=== PATIENT | male | born 1990 | race Caucasian/White ===

== ENCOUNTER 2018-05-05 08:16 | Inpatient (IN) | payer OTHER ==
[~2018-05-05] VITALS: Ht 185.4 cm; Wt 44.9 kg
[2018-05-05] VITALS (36 sets, daily range): BP systolic 86–123; BP diastolic 47–86
[2018-05-05 08:45] LABS: HEMATOCRIT 57.3 % (42.0-52.0); MCH 31.5 pg (26.0-34.0); MCHC 33.2 g/dL (28.0-37.0); RBC 6.03 mil/uL (4.50-6.00); RDW 12.5 % (10.5-14.5); WBC 23.7 thou/uL (4.0-11.0)
--- NOTE | 2018-05-05 09:00 | NUR ---
PROVIDER AWARE OF INABILITY TO GET TEMP; 3 WARM BLANKETS PLACED AND PROVIDER STATES DO NOT PERFORM RECTAL TEMP AT THIS TIME; CONTINUE TO TRY ORAL OR AXILLARY TEMP FOR NOW
[2018-05-05 09:06] LABS: CALCIUM 10.8 mg/dL (8.5-10.1); CREATININE 2.4 mg/dL (0.7-1.3); POTASSIUM 5.1 mmol/L (3.5-5.1)
[2018-05-05 09:08] LABS: TOTAL BILIRUBIN 0.7 mg/dL (<0.1-1.0); TOTAL PROTEIN 8.2 g/dL (6.4-8.2)
[2018-05-05 09:32] LABS: ABSOLUTE NEUTROPHILS 21.3 thou/uL (1.4-8.2)
[2018-05-05 09:33] LABS: ANISOCYTOSIS SLIGHT; MAGNESIUM 2.8 mg/dL (1.8-2.4); PLATELET COUNT 296 thou/uL (150-400); POIKILOCYTOSIS SLIGHT
[2018-05-05 09:34] LABS: PHOSPHORUS 11.9 mg/dL (2.5-4.9)
[2018-05-05 09:58] LABS: URINE BILIRUBIN NEGATIVE (Negative); URINE BLOOD 2+ (Negative); URINE CLARITY CLEAR; URINE COLOR YELLOW; URINE GLUCOSE-RANDOM* 3+ (Negative); URINE KETONES 3+ (Negative); URINE LEUKOCYTES-REFLEX NEGATIVE (Negative); URINE NITRITE-REFLEX NEGATIVE (Negative); URINE PROTEIN (DIPSTICK) 1+ (Negative); URINE SPECIFIC GRAVITY 1.025 (1.005-1.035); URINE UROBILINOGEN 0.2 E.U./dl (0.2-1.0)
[2018-05-05 10:22] LABS: HYALINE CASTS 0-3 Few /LPF (None Seen); MUCUS 4-6 Moderate strn/LPF (None Seen); SQUAMOUS 0-3 Few /LPF (0-3)
[2018-05-05 10:23] LABS: BACTERIA-REFLEX 1-9 Few /HPF (None Seen); CRYSTALS None Seen /LPF (None Seen); URINE RBC 0-2 Rare /HPF (0-2); URINE WBC-REFLEX 0-5 Rare /HPF (0-5)
[2018-05-05 10:53] LABS: ALBUMIN 5.3 g/dL (3.4-5.0); BUN 31 mg/dL (7-18); CALCIUM 10.9 mg/dL (8.5-10.1); CHLORIDE 95 mmol/L (98-107); CREATININE 2.3 mg/dL (0.7-1.3); PHOSPHORUS 11.9 mg/dL (2.5-4.9); SODIUM 140 mmol/L (136-145)
[2018-05-05 11:15] LABS: ANION GAP 40 mmol/L (7-16)
[2018-05-05 11:18] LABS: POTASSIUM 5.4 mmol/L (3.5-5.1)
[2018-05-05 11:19] LABS: CO2 < 5 mmol/L (21-32); GLUCOSE 963 mg/dL (74-106)
[2018-05-05 11:29] LABS: ALBUMIN 4.1 g/dL (3.4-5.0); BUN 31 mg/dL (7-18); CALCIUM 9.1 mg/dL (8.5-10.1); CHLORIDE 106 mmol/L (98-107); CREATININE 1.7 mg/dL (0.7-1.3); MAGNESIUM 2.5 mg/dL (1.8-2.4); PHOSPHORUS 6.4 mg/dL (2.5-4.9); POTASSIUM 5.6 mmol/L (3.5-5.1); SODIUM 145 mmol/L (136-145); TROPONIN-I <0.06 ng/mL (<0.06)
--- NOTE | 2018-05-05 11:29 | EKG ---
[address] [address] ELECTROCARDIOGRAM REPORT Name: ALFREDO CABAN Room #: 242-P ADM IN M.R.#: [id number] ������������������ Admission: 05/05/18 ������������������ Attend Phys: Christopher Atkinson MD Discharge: ������������������ Date of : 86 Report #: [id number] ����������������������������������������������������������������� [id number] THIS REPORT FOR: //name// [facility] ED Test Date: 2018-05-05 Test Time: 08:32:55 Pat Name: ALFREDO CABAN Department: Room: 242 Gender: M Linux Server Engineer: SURINDER : 1990 Requested By: Ned Mcgee Order Number: [id number] MD: Lars Bear Measurements Intervals [place] Rate: 150 P: 89 OK: 108 QRS: 92 QRSD: 84 T: 76 QT: 285 QTc: 451 Interpretive Statements Sinus tachycardia Left atrial enlargement Borderline right axis deviation Nonspecific ST/T wave changes Baseline wander in lead(s) II No previous ECG available for comparison Electronically Signed On 05-05-2018 11:28:55 ALLERGY NURSE by Lars Bear [email or web address] ��������������������������������������������� <ELECTRONICALLY SIGNED> ���������������������������������������� By: Lars Bear MD ��������������������������������������������� 05/05/18 1128 1 1 Lars Bear MD /EPI
[2018-05-05 11:44] LABS: ANION GAP 31 mmol/L (7-16)
[2018-05-05 11:46] LABS: CO2 8 mmol/L (21-32); GLUCOSE 589 mg/dL (74-106)
--- NOTE | 2018-05-05 13:50 | NUR ---
ORDERS RECEIVED FOR COGNITIVE/COMMUNICATION EVALUATION. BLOOD SUGARS HAVE CONTINUED TO DROP INTO SAFER RANGE, COGNITION HAS RETURNED TO BASELINE. NO FORMAL EVALUATION WARRANTED. AIR PRESS OPERATOR TO SIGN OFF AT THIS TIME; PLEASE RECONSULT NEEDED.
[2018-05-05 15:31] LABS: ALBUMIN 3.7 g/dL (3.4-5.0); CALCIUM 8.8 mg/dL (8.5-10.1); CREATININE 1.4 mg/dL (0.7-1.3); MAGNESIUM 2.4 mg/dL (1.8-2.4); PHOSPHORUS 1.6 mg/dL (2.5-4.9)
[2018-05-05 15:33] LABS: POTASSIUM 4.5 mmol/L (3.5-5.1)
--- NOTE | 2018-05-05 16:57 | NUR ---
CM ASSESSMENT: CASE OPENED FOR DC PLANNING. CLINICAL INFO REVIEWED. PT SLEEPING AT TIME OF ASSESSMENT, INFO OBTAINED FROM PT'S MOTHER KENIA. PT ADMITS WITH VERAL WEEK HX WEIGHT LOSS AND NOT FEELING WELL. DX WITH TYPE 1 DM. PT L[place], WORKS FT, HAS VEHICLE. NO PCP. MOM STATES PT HAS [employer] INSURANCE BUT DOES NOT HAVE CARD NOW. HAD EMAIL FROM [employer] WITH PT'S MEMBER ID AND THIS INFO FORWARDED TO PRE CERT FOR VERIFICATION. ENCOURAGED PT'S MOM TO BRING CARD IF ABLE. PT LATE AWAKE AND DISCUSSED IMPORTANCE OF PRIMARY CARE FOLLOW UP POST DISCHARGE. PROVIDED PT AND HIS MOTHER VERIFICATION OF PT'S HOSPITALIZATION FOR THEIR EMPLOYERS AT MOM'S REQUEST. THE LEVEL OF ASSISTANCE AT DC WILL DEPEND ON WHETHER PT HAS COMMERCIAL MDEICAL INSURANCE AND WILL FOLLOW TO VERIFY THIS AND ASSIST WITH COORDINATION OF DC NEEDS. PT WILL NEED PCP RESOURCES AND MEDS AND DIABETIC SUPPLIES FOR MONITORING BLOOD GLUCOSE.
[2018-05-05 19:40] LABS: ALBUMIN 3.4 g/dL (3.4-5.0); CALCIUM 8.3 mg/dL (8.5-10.1); CREATININE 1.2 mg/dL (0.7-1.3); MAGNESIUM 2.1 mg/dL (1.8-2.4); PHOSPHORUS 1.3 mg/dL (2.5-4.9); POTASSIUM 3.9 mmol/L (3.5-5.1)
[2018-05-05 23:35] LABS: CALCIUM 8.1 mg/dL (8.5-10.1); CREATININE 0.9 mg/dL (0.7-1.3); MAGNESIUM 1.8 mg/dL (1.8-2.4); PHOSPHORUS 1.5 mg/dL (2.5-4.9); POTASSIUM 3.5 mmol/L (3.5-5.1)
[2018-05-06] VITALS (33 sets, daily range): BP systolic 74–112; BP diastolic 41–86
[2018-05-06 04:57] LABS: ALBUMIN 2.9 g/dL (3.4-5.0); CALCIUM 8.1 mg/dL (8.5-10.1); CREATININE 0.9 mg/dL (0.7-1.3); PHOSPHORUS 1.7 mg/dL (2.5-4.9); POTASSIUM 3.2 mmol/L (3.5-5.1)
--- NOTE | 2018-05-06 06:36 | NUR ---
FOLLOWING POC WITH DKA PROTOCOL. BP HAVE BEEN SOFT ALL EVENING. 0400 LABS SHOW K+ LOWER. CHANGED FLUIDS TO 40 MEQ OF K+ WITH D5 1/2NS. HUNG IVPB K+ 20 MEQ. PT STILL DROWSY. PT BIGGEST CONCERN IS WANTING TO EAT. HOURLY ROUNDING. MOTHER OF PT ROOMING IN.
[2018-05-06 09:29] LABS: CALCIUM 8.2 mg/dL (8.5-10.1); CREATININE 0.9 mg/dL (0.7-1.3); POTASSIUM 3.4 mmol/L (3.5-5.1)
[2018-05-06 09:33] LABS: MAGNESIUM 1.8 mg/dL (1.8-2.4); PHOSPHORUS 1.1 mg/dL (2.5-4.9)
[2018-05-06 13:56] LABS: ALBUMIN 3.1 g/dL (3.4-5.0); CALCIUM 7.8 mg/dL (8.5-10.1); CREATININE 0.8 mg/dL (0.7-1.3); MAGNESIUM 1.7 mg/dL (1.8-2.4); PHOSPHORUS 0.8 mg/dL (2.5-4.9); POTASSIUM 3.6 mmol/L (3.5-5.1)
--- NOTE | 2018-05-06 18:49 | NUR ---
Received pt from the ICU, alert and oriented x 4, both IV lines patent. FAmily of the pt at bedside. Pt is able to tolerate diet, no complaints of nausea, vomiting or diarrhea.
[2018-05-07 04:59] LABS: ABSOLUTE NEUTROPHILS 2.5 thou/uL (1.4-8.2); BASOPHILS 0.3 % (0.0-2.0); EOSINOPHILS 2.3 % (0.0-3.0); LYMPHOCYTES 29.2 % (24.0-44.0); MCH 31.8 pg (26.0-34.0); MCHC 35.6 g/dL (28.0-37.0); MONOCYTES 8.4 % (1.0-8.0); POLYS 59.8 % (36.0-66.0); RBC 4.37 mil/uL (4.50-6.00); RDW 12.5 % (10.5-14.5)
[2018-05-07 05:08] LABS: HEMOGLOBIN 13.9 gm/dL (14.0-18.0); WBC 4.1 thou/uL (4.0-11.0)
[2018-05-07 05:09] LABS: MCV 89.2 fL (80.0-100.0); PLATELET COUNT 132 thou/uL (150-400)
[2018-05-07 05:25] LABS: ALBUMIN 2.9 g/dL (3.4-5.0); CALCIUM 7.8 mg/dL (8.5-10.1); CREATININE 0.5 mg/dL (0.7-1.3); PHOSPHORUS 1.4 mg/dL (2.5-4.9); TOTAL BILIRUBIN 0.6 mg/dL (<0.1-1.0); TOTAL PROTEIN 4.7 g/dL (6.4-8.2)
[2018-05-07 05:29] LABS: POTASSIUM 2.9 mmol/L (3.5-5.1)
[2018-05-07 06:50] VITALS: BP 109/70
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
[2018-05-07 08:03] VITALS: BP 95/62
[2018-05-07 08:30] VITALS: BP 106/93
--- NOTE | 2018-05-07 12:01 | NUR ---
FOLLOWING FOR DC PLANNING. CLINICAL INFO REVIEWED. WORKING WITH PT/MOM TO VERIFY ANY ACTIVE MEDICAL INSURANCE. YESTERADY, PT'S MOM KENIA INFORMED MEMBER ID SHE PROVIDED PREVIOUSLY SHOWED ONLY DENTAL COVERAGE. UR TECH DOING MORE DETAILED CHECK FOR [employer] ACTIVE MEDICAL COVERAGE. DR. THOMPSON INDICATES PT IS READY FOR DC TODAY. 4W CM AND DUMPING MACHINE OPERATOR UPDATED AND WILL NOTIFY DR. THOMPSON WHEN DETERMINED WHETHER PT HAS ACTIVE MEDICAL COVERAGE.
--- NOTE | 2018-05-07 14:27 | NUR ---
Pt stable during the shift, diet is well tolerated. No complaints of pain or discomfort verbalized. Oral potassium given, labs drawn at noon now within normal limits. Pt is able to ambulate on his own with no issues.
[2018-05-07 14:36] VITALS: BP 106/93
--- NOTE | 2018-05-07 14:44 | NUR ---
CARE TEAM INDICATED THAT PT IS MEDICALLY STABLE TO DISHCARGE HOME THIS DAY. PHYSICIAN WROTE SCRIPTS FOR ALL OF PT'S MEDS AND SUPPLIES. UR DC LEAD MASSAGE THERAPIST MET WITH PT AND DETERMINED THAT PT HAD A [employer] INSURANCE THROUGH THE [employer] BUT THAT THEY WOULDN'T COVER SOME OF HIS MEDS. SCRIPT WAS TAKEN TO THE PHARMACY TO BE FILLED AND VOUCHERED BY SS. CM AWAITING COST OF MEDS AND SUPPLIES. PT WAS ENCOURAGED TO SET UP FOLLOW UP APPOINTMENT AT THE [facility] FOR FOLLOW UP CARES AND MEDS. NO OTHER CM INTERVENTION INDICATED AT THIS TIME. CASE CLOSED.
[2018-05-07 15:12] VITALS: BP 92/57
--- NOTE | 2018-05-07 16:53 | NUR ---
cm discussed with outpt [facility] vouched medication approved, approx $ 500.00 + dollars. cm notified cm field pipelines supervisor. bedside nurse notified that rx is having to get clarification of medications and meds will be ready for pt mom to pick in 30-hr.
--- NOTE | 2018-05-07 18:24 | NUR ---
Pt is stable through out the shift. Pt is up at vilma and has had no episodes of nausea, vomoting or fever. Pt education on how to give himself insuline done, return demo successful. Diabetic teaching packet given as well. Discussed diet option as well with the pt and mother. DC oreders and instruction given to both mother and pt. P)t is not dc.
== END 2018-05-07 18:45 | disposition home or self-care (01) | DRG 637 ==
LOC: ER 08:16 → EROBS 09:45 → ICU 10:16 → 4W 05-06 16:30
PROVIDERS: Emergency Medicine; ADMIT Internal Medicine
DX: E10.10 Type 1 diabetes mellitus with ketoacidosis without coma (principal); G92 Toxic encephalopathy; E43 Unspecified severe protein-calorie malnutrition; Z68.1 Body mass index [BMI] 19.9 or less, adult; R00.0 Tachycardia, unspecified; Z87.891 Personal history of nicotine dependence; Z91.19 Patient's noncompliance with other medical treatment and regimen; Z79.899 Other long term (current) drug therapy
CPT/HCPCS: 10047; 10078